=== PATIENT | female | born 1935 | race Caucasian/White ===

== ENCOUNTER → 2017-01-26 | Outpatient (CLI) | payer MEDICARE, BC ==
--- NOTE | 2017-01-27 08:58 | CT ---
EXAMINATION TYPE: CT soft tissue neck wo con DATE OF EXAM: 01/26/2017 COMPARISON: NONE HISTORY: Left sided swelling marked by BB CT DLP: 445.4 mGycm CONTRAST: None TECHNIQUE: Axial images at 3 mm thick sections. Reconstructed images in the coronal plane and sagitt al plane are reviewed. FINDINGS: Limited CT sections are obtained the lung apices. The lung apices appear clear. The ascending thoracic aorta is enlarged measuring 5.0 cm in AP dimension at the level of the main pu lmonary artery. Main pulmonary artery measures 3.1 cm. Vascular calcification is within the aorta. CT neck: The torus tubarius and fossa of Rosenmuller are normal. [employer] spaces are normal. Para nasal sinuses and mastoid air cells are clear. Parotid glands appear normal and symmetrical. Submandibular glands, are normal. Parapharyngeal spac es are normal. A few submental lymph nodes are present, not enlarged by CT criteria. The hypopharynx appears within normal limits. Vocal cord level appear symmetrical. Piriform sinuses are slightly asymmetric although underlying mas ses are not identified. Thyroid as visualized is normal. Degenerative changes are within the cervical spine. Posterior endplate spurring is present C3-4 C5-6 C6-7. Degenerative disc changes are present. Foraminal narrowing is present on the right. Facet cevallos es are present. BB brito the level of the left submandibular gland. No underlying abnormality is evident. Left subman dibular gland appears symmetrical with the contralateral right. Suspicious adenopathy is not evident. IMPRESSIONS: 1. No suspicious anomaly at the level marked by the BB. No submandibular gland this level appears nor mal. 2. Degenerative changes through the cervical spine.
== END | disposition home or self-care (01) ==
LOC: RADCTMAIN 18:14
PROVIDERS: ATTEND Internal Medicine
DX: M47.812 Spondylosis without myelopathy or radiculopathy, cervical region (principal); R22.1 Localized swelling, mass and lump, neck
CPT/HCPCS: 36415; 70490; 82565; 84520

== ENCOUNTER → 2019-02-09 | Outpatient (CLI) | payer MEDICARE, BC ==
[2019-02-09 09:55] LABS: INR 1.3 (<1.2); Prothrombin Time 12.9 sec (9.0-12.0)
== END | disposition home or self-care (01) ==
LOC: LABWHC1 09:02
PROVIDERS: ATTEND Dentist Oral and Maxillofacial Surgery
DX: D68.9 Coagulation defect, unspecified (principal)
CPT/HCPCS: 36415; 85610

== ENCOUNTER → 2021-01-28 | Outpatient (CLI) | payer MEDICARE ==
--- NOTE | 2021-01-28 16:41 | US ---
EXAMINATION TYPE: US thyroid st tissue head/neck DATE OF EXAM: 01/28/2021 COMPARISON: NONE CLINICAL HISTORY: R22.1 SWELLING, MASS AND LUMP. 85yr old who has noticed soft fullness near her left clavicle since her Covid shot in September 2020. No pain, no skin changes Soft tissue scan of left supraclavicular area produced no obvious abnormality. No enlarged lymph node s or fluid collections seen. IMPRESSION: 1. No cyst or mass at the left supraclavicular region and an area of fullness near the left clavicle. No sonographic evidence of lymph node. No fluid collection.
== END ==
LOC: RADUSWWP 09:19
PROVIDERS: ATTEND Internal Medicine
DX: R22.1 Localized swelling, mass and lump, neck (principal)
CPT/HCPCS: 76536